=== PATIENT | female | born 1955 | race Two or more races ===

== ENCOUNTER 2023-09-05 11:08 | Emergency (ER) | payer OTHER ==
[~2023-09-05] VITALS: Ht 157.5 cm; Wt 73.5 kg
[2023-09-05] MEDS ORDERED: LOSARTAN POTASS25 MG PO (11:39)
[2023-09-05] MEDS ORDERED: GUAIFENESIN/DEXTROMETHORPHAN 100 MG/5 ML ML PO ONE (14:30)
[2023-09-05] MEDS ORDERED: IPRATROPIUM/ALBUTEROL SULFATE 3 ML AMPUL.NEB IH SCH (14:30)
[2023-09-05] MEDS ORDERED: METHYLPREDNISOLONE SOD SUCC 125 MG VIAL IV ONE (14:30)
[2023-09-05 15:25] LABS: HEMATOCRIT 42.8 % (36.0-45.00); HEMOGLOBIN 14.4 g/dL (12.0-15.00); MEAN CELL VOLUME 90.4 fL (80.00-100.00); MEAN CORPUSCULAR HEMOGLOBIN 30.4 pg (27.00-32.0); MEAN CORPUSCULAR HGB CONC 33.7 g/dl (32.0-36.0); PLATELET COUNT 226 K/uL (150-450); RED BLOOD COUNT 4.74 M/uL (4.00-6.00)
[2023-09-05] MEDS ORDERED: IPRATROPIU0.2 MG/1 M IH (17:09)
[2023-09-05] MEDS ORDERED: BUDESONIDE0.5 MG/2 M IH (17:09)
[2023-09-05] MEDS ORDERED: QC TUSSIN DM L118 ML PO (17:09)
[2023-09-05] MEDS ORDERED: ZITHROMAX500 MG PO (17:09)
[2023-09-05] MEDS ORDERED: ALBUTEROL1.25 MG/3 IH (17:09)
[2023-09-05] MEDS ORDERED: LEVOFLOXACIN750 MG PO (17:25)
[2023-09-05] MEDS ORDERED: MEDROLPACK PO ×2 (17:30)
== END 2023-09-05 17:38 ==
LOC: ER 11:09
PROVIDERS: Nurse Practitioner Family
DX: J06.9 Acute upper respiratory infection, unspecified (principal); Z88.6 Allergy status to analgesic agent; I10 Essential (primary) hypertension; Z20.822 Contact with and (suspected) exposure to COVID-19
CPT/HCPCS: 36415; 71046; 73030; 73060; 94640; 96365; 99284; J2930